=== PATIENT | male | born 1965 | race Caucasian/White ===

== ENCOUNTER → 2018-08-12 09:41 | Outpatient (CLI) | payer OTHER, MEDICAID, MEDICARE, SELFPAY ==
[2018-08-12 10:30] LABS: Add Manual Diff / Slide Review NO; Basophils Absolute Auto 0 /uL (0-100); Basophils Percent Auto 0.5 % (0-2); Eosinophils Absolute Auto 200 /uL (0-450); Eosinophils Percent Auto 3.2 % (2-4); Hematocrit 41.3 % (41-53); Hemoglobin 14.3 g/dL (13.5-17.5); Lymphocytes Absolute Auto 1600 /uL (1100-4500); Lymphocytes Percent Auto 33.8 % (25-40); Mean Corpuscular HGB Conc 34.6 % (30-36); Mean Corpuscular Hemoglobin 30.3 PG (26-34); Mean Corpuscular Volume 87.6 fL (80-100); Monocytes Absolute Auto 300 /uL (0-900); Monocytes Percent Auto 7.4 % (3-14); Neutrophils Absolute Auto 2600 /uL (1500-7000); Neutrophils Percent Auto 55.1 % (50-75); Platelet Count 188 X10^3/uL (150-400); Red Blood Cell Count 4.71 X10^6/uL (4.5-5.9); Red Cell Distribution Width 12.6 % (11.6-14.8); White Blood Cell Count 4.6 X10^3/uL (4.5-11.0)
[2018-08-12 12:16] LABS: HEMOLYSIS < 15 (0-50); Iron 69 ug/dL (49-181)
[2018-08-12 12:26] LABS: Percent Iron Saturation 21 % (20-50); Total Iron Binding Capacity 332 ug/dL (261-462); Transferrin 258 mg/dL (206-381)
[2018-08-14 20:36] LABS: Levetiracetam Keppra 9.2 mcg/mL
[2018-08-15 16:05] LABS: Lamotrigine Lamictal 6.7 mcg/mL (4.0-18.0)
== END ==
PROVIDERS: Psychiatry & Neurology Neurology; PCP Family Medicine; Visit Provider Internal Medicine
DX: D64.9 Anemia, unspecified (principal); G40.009 Localization-related (focal) (partial) idiopathic epilepsy and epileptic syndromes with seizures of localized onset, not intractable, without status epilepticus
CPT/HCPCS: 36415; 80175; 80177; 83540; 83550; 85025

== ENCOUNTER → 2019-02-21 11:53 | Outpatient (CLI) | payer MEDICARE, MEDICAID, SELFPAY ==
[2019-02-21 13:21] LABS: Add Manual Diff / Slide Review NO; Basophils Absolute Auto 0 /uL (0-100); Basophils Percent Auto 0.6 % (0-2); Eosinophils Absolute Auto 200 /uL (0-450); Eosinophils Percent Auto 3.8 % (2-4); Hematocrit 41.2 % (41-53); Hemoglobin 14.1 g/dL (13.5-17.5); Lymphocytes Absolute Auto 1500 /uL (1100-4500); Lymphocytes Percent Auto 25.8 % (25-40); Mean Corpuscular HGB Conc 34.2 % (30-36); Mean Corpuscular Hemoglobin 30.3 PG (26-34); Mean Corpuscular Volume 88.7 fL (80-100); Monocytes Absolute Auto 400 /uL (0-900); Monocytes Percent Auto 6.7 % (3-14); Neutrophils Absolute Auto 3800 /uL (1500-7000); Neutrophils Percent Auto 63.1 % (50-75); Platelet Count 202 X10^3/uL (150-400); Red Blood Cell Count 4.64 X10^6/uL (4.5-5.9); Red Cell Distribution Width 12.4 % (11.6-14.8); White Blood Cell Count 5.9 X10^3/uL (4.5-11.0)
[2019-02-21 13:59] LABS: Free T4, Direct Thyroxine 1.14 ng/dL (0.78-2.19)
[2019-02-24 14:11] LABS: Triiodothyronine T3 Total 122 ng/dL (76-181)
[2019-02-25 09:03] LABS: Lamotrigine Lamictal 7.1 mcg/mL (4.0-18.0)
== END ==
PROVIDERS: PCP Internal Medicine; Visit Provider Psychiatry & Neurology Neurology
DX: R61 Generalized hyperhidrosis (principal); G40.009 Localization-related (focal) (partial) idiopathic epilepsy and epileptic syndromes with seizures of localized onset, not intractable, without status epilepticus
CPT/HCPCS: 36415; 80175; 84439; 84443; 84480; 85025

== ENCOUNTER → 2019-12-17 13:05 | Outpatient (CLI) | payer MEDICARE, MEDICAID, SELFPAY | PROVIDERS: PCP Student in an Organized Health Care Education/Training Program; Referring Provider Student in an Organized Health Care Education/Training Program; Visit Provider Student in an Organized Health Care Education/Training Program | DX: M81.0 Age-related osteoporosis without current pathological fracture (principal); Z82.62 Family history of osteoporosis; Z87.891 Personal history of nicotine dependence | CPT/HCPCS: 77080 ==

== ENCOUNTER → 2019-12-28 11:25 | Outpatient (CLI) | payer MEDICARE, MEDICAID, SELFPAY ==
[2019-12-30 08:22] LABS: COVID19 Sendout Not Detected (Not Detect)
== END ==
PROVIDERS: PCP Student in an Organized Health Care Education/Training Program; Visit Provider Physician Assistant
DX: Z11.59 Encounter for screening for other viral diseases (principal)
CPT/HCPCS: 87635

== ENCOUNTER → 2019-12-31 12:56 | Outpatient (CLI) | payer MEDICARE, MEDICAID, SELFPAY ==
--- NOTE | 2020-01-07 10:09 | PM.PFT.1 ---
Pulmonary Function Test Referral & Results Date Patient Seen: 12/31/19 Requesting provider: Kody Howell Indication: COPD Results: The spirometry demonstrates an FVC of 4.05 L which is 86% of predicted. The FEV1 was measured at 2.10 L which is 58% of predicted. The FEV1/FVC ratio was 52 which is 67% of predicted. Following the administration of bronchodilator there was a 20% improvement in FEV1 and a 73% improvement in FEF 25-75%. Lung volumes show an SVC of 3.39 L which is 73% of predicted. The diffusing capacity was measured at 25.99 which is 85% of predicted. The maximum voluntary ventilation was slightly reduced Interpretation: This study demonstrates moderate obstructive lung disease based on reduction in FEV1 and FEV1/FVC ratio. There is evidence of significant benefit following bronchodilator as above There is also mild restrictive lung disease present based on reduction SVC There is a minimal reduction in diffusing capacity suggesting element of disease at the capillary alveolar level as well. Clinical correlation suggested
== END ==
PROVIDERS: PCP Student in an Organized Health Care Education/Training Program; Referring Provider Student in an Organized Health Care Education/Training Program; Visit Provider Student in an Organized Health Care Education/Training Program
DX: J44.9 Chronic obstructive pulmonary disease, unspecified (principal); Z87.891 Personal history of nicotine dependence
CPT/HCPCS: 94060; 94726; 94729

== ENCOUNTER → 2020-01-01 13:56 | Outpatient (CLI) | payer MEDICARE, MEDICAID, SELFPAY ==
[2020-01-01 14:44] LABS: Hematocrit 40.9 % (41-53); Hemoglobin 13.9 g/dL (13.5-17.5); Mean Corpuscular Hemoglobin 29.5 PG (26-34); Platelet Count 195 X10^3/uL (150-400)
[2020-01-01 14:54] LABS: Alanine Aminotransferase 20 IU/L (<50); Albumin 4.7 g/dL (3.5-5.0); Albumin Globulin Ratio 1.6 (1.0-2.8); Alkaline Phosphatase 85 U/L (38-126); Aspartate Aminotransferase 29 IU/L (17-59); BUN Creatinine Ratio 17.1 (6-22); Bilirubin Total 0.7 mg/dL (0.2-1.3); Blood Urea Nitrogen 18 mg/dL (9-20); Calcium 9.8 mg/dL (8.4-10.2); Carbon Dioxide 29 mmol/L (22-32); Chloride 102 mmol/L (98-107); Estimated Glomerular Filt Rate > 60.0 mL/min (>60); Globulin 2.9 g/dL (1.7-4.1); Glucose 102 mg/dL (70-100); HEMOLYSIS < 15 (0-50); Potassium 4.6 mmol/L (3.4-5.1); Sodium 137 mmol/L (137-145); Total Protein 7.6 g/dL (6.3-8.2)
[2020-01-01 15:13] LABS: HEMOLYSIS < 15 (0-50); Iron 115 ug/dL (49-181)
[2020-01-01 15:23] LABS: Percent Iron Saturation 32 % (20-50); Total Iron Binding Capacity 356 ug/dL (261-462); Transferrin 277 mg/dL (206-381)
[2020-01-01 15:39] LABS: Vitamin B12 723 pg/mL (239-931)
[2020-01-01 15:44] LABS: TSH w/ Reflex to FT4 1.61 uIU/mL (0.47-4.68)
== END ==
PROVIDERS: PCP Student in an Organized Health Care Education/Training Program; Referring Provider Student in an Organized Health Care Education/Training Program; Visit Provider Student in an Organized Health Care Education/Training Program
DX: G25.81 Restless legs syndrome (principal); R53.83 Other fatigue; M81.0 Age-related osteoporosis without current pathological fracture; R23.2 Flushing
CPT/HCPCS: 36415; 80053; 82607; 83540; 83550; 84443; 85027

== ENCOUNTER → 2020-01-21 13:55 | Outpatient (CLI) | payer MEDICARE, MEDICAID, SELFPAY ==
[2020-01-21 15:00] LABS: Cholesterol 186 mg/dL (140-199); HDL Cholesterol 45 mg/dL (40-60); LDL Cholesterol Calculated 99 mg/dL (<100); Triglycerides 211 mg/dL (35-150)
[2020-01-21 22:09] LABS: Vitamin D 25 Hydroxy (D3) 77.5 ng/mL (30.0-100.0)
== END ==
PROVIDERS: PCP Student in an Organized Health Care Education/Training Program; Referring Provider Student in an Organized Health Care Education/Training Program; Visit Provider Student in an Organized Health Care Education/Training Program
DX: E55.9 Vitamin D deficiency, unspecified (principal); M81.0 Age-related osteoporosis without current pathological fracture; Z13.220 Encounter for screening for lipoid disorders
CPT/HCPCS: 36415; 80061; 82306

== ENCOUNTER → 2021-01-23 08:01 | Outpatient (CLI) | payer MEDICARE, MEDICAID, SELFPAY ==
[2021-01-23 09:53] LABS: Add Manual Diff / Slide Review NO; Basophils Absolute Auto 0 /uL (0-100); Basophils Percent Auto 0.7 % (0-2); Eosinophils Absolute Auto 100 /uL (0-450); Eosinophils Percent Auto 3.1 % (2-4); Hematocrit 38.9 % (41-53); Hemoglobin 13.4 g/dL (13.5-17.5); Lymphocytes Absolute Auto 1600 /uL (1100-4500); Lymphocytes Percent Auto 32.9 % (25-40); Mean Corpuscular HGB Conc 34.4 % (30-36); Mean Corpuscular Hemoglobin 29.9 PG (26-34); Monocytes Absolute Auto 400 /uL (0-900); Monocytes Percent Auto 9.2 % (3-14); Neutrophils Absolute Auto 2600 /uL (1500-7000); Neutrophils Percent Auto 54.1 % (50-75); Platelet Count 174 X10^3/uL (150-400); Red Blood Cell Count 4.47 X10^6/uL (4.5-5.9); Red Cell Distribution Width 12.7 % (11.6-14.8); White Blood Cell Count 4.7 X10^3/uL (4.5-11.0)
[2021-01-23 10:49] LABS: Albumin 4.5 g/dL (3.5-5.0); BUN Creatinine Ratio 15.4 (6-22); Blood Urea Nitrogen 18 mg/dL (9-20); Calcium 9.6 mg/dL (8.4-10.2); Carbon Dioxide 26 mmol/L (22-32); Chloride 102 mmol/L (98-107); Estimated Glomerular Filt Rate > 60.0 mL/min (>60); Glucose 103 mg/dL (70-100); HEMOLYSIS < 15 (0-50); Phosphorous 4.6 mg/dL (2.5-4.5); Potassium 4.4 mmol/L (3.4-5.1); Sodium 136 mmol/L (137-145)
[2021-01-23 10:52] LABS: Vitamin D 25 Hydroxy (D3) 82.1 ng/mL (30.0-100.0)
[2021-01-23 10:53] LABS: Follicle Stimulating Hormone 3.14 mIU/mL; Luteinizing Hormone 0.792 mIU/mL
[2021-01-23 10:58] LABS: Free T4, Direct Thyroxine 1.16 ng/dL (0.78-2.19)
[2021-01-23 11:12] LABS: Thyroid Stimulating Hormone 2.74 uIU/mL (0.47-4.68)
[2021-01-23 11:22] LABS: Prostate Specific Antigen 1.46 ng/mL (0.10-4.00)
[2021-01-24 02:34] LABS: Sex Hormone Binding Globulin 60.4 nmol/L (19.3-76.4)
[2021-01-28 15:11] LABS: Percent Free Testosterone 2.44 % (1.50-4.20); Testosterone Free 5.24 ng/dL (5.00-21.00); Testosterone Total 214.7 ng/dL (264.0-916.0)
== END ==
PROVIDERS: PCP Student in an Organized Health Care Education/Training Program; Referring Provider Student in an Organized Health Care Education/Training Program; Visit Provider Student in an Organized Health Care Education/Training Program
DX: M81.0 Age-related osteoporosis without current pathological fracture (principal)
CPT/HCPCS: 36415; 80069; 82306; 83001; 83002; 84146; 84153; 84270; 84402; 84403; 84439; 84443; 85025

== ENCOUNTER → 2021-03-15 07:57 | Outpatient (CLI) | payer MEDICARE, MEDICAID, SELFPAY ==
[2021-03-15 09:04] LABS: Add Manual Diff / Slide Review NO; Basophils Absolute Auto 0 /uL (0-100); Basophils Percent Auto 0.6 % (0-2); Eosinophils Absolute Auto 100 /uL (0-450); Eosinophils Percent Auto 3.5 % (2-4); Hematocrit 38.4 % (41-53); Hemoglobin 13.5 g/dL (13.5-17.5); Lymphocytes Absolute Auto 1300 /uL (1100-4500); Lymphocytes Percent Auto 29.4 % (25-40); Mean Corpuscular Hemoglobin 30.6 PG (26-34); Mean Corpuscular Volume 87.4 fL (80-100); Monocytes Absolute Auto 400 /uL (0-900); Monocytes Percent Auto 9.6 % (3-14); Neutrophils Absolute Auto 2400 /uL (1500-7000); Neutrophils Percent Auto 56.9 % (50-75); Platelet Count 170 X10^3/uL (150-400); Red Cell Distribution Width 12.9 % (11.6-14.8); White Blood Cell Count 4.3 X10^3/uL (4.5-11.0)
[2021-03-15 09:39] LABS: HEMOLYSIS < 15 (0-50); Iron 102 ug/dL (49-181)
[2021-03-15 09:41] LABS: Alanine Aminotransferase 21 IU/L (<50); Albumin 4.4 g/dL (3.5-5.0); Albumin Globulin Ratio 1.7 (1.0-2.8); Alkaline Phosphatase 81 U/L (38-126); Aspartate Aminotransferase 30 IU/L (17-59); Bilirubin Total 0.6 mg/dL (0.2-1.3); Bilirubin Unconjugated 0.4 mg/dL (0.0-1.1); Globulin 2.6 g/dL (1.7-4.1); HEMOLYSIS < 15 (0-50)
[2021-03-15 09:51] LABS: Percent Iron Saturation 31 % (20-50); Total Iron Binding Capacity 325 ug/dL (261-462); Transferrin 233 mg/dL (206-381)
[2021-03-15 09:57] LABS: Free T4, Direct Thyroxine 1.26 ng/dL (0.78-2.19)
[2021-03-15 09:59] LABS: Follicle Stimulating Hormone 2.53 mIU/mL; Luteinizing Hormone < 0.216 mIU/mL
[2021-03-15 10:11] LABS: Thyroid Stimulating Hormone 4.31 uIU/mL (0.47-4.68)
[2021-03-15 10:12] LABS: Prostate Specific Antigen 2.05 ng/mL (0.10-4.00)
[2021-03-16 12:06] LABS: Sex Hormone Binding Globulin 51.3 nmol/L (19.3-76.4)
[2021-03-21 11:14] LABS: Testosterone Free 0.48 ng/dL (5.00-21.00); Testosterone Total 21.8 ng/dL (264.0-916.0)
== END ==
PROVIDERS: PCP Student in an Organized Health Care Education/Training Program; Referring Provider Student in an Organized Health Care Education/Training Program; Visit Provider Student in an Organized Health Care Education/Training Program
DX: E29.1 Testicular hypofunction (principal)
CPT/HCPCS: 36415; 80076; 83001; 83002; 83540; 83550; 84153; 84270; 84402; 84403; 84439; 84443; 85025

== ENCOUNTER 2022-04-27 15:16 | Emergency (ER) | payer MEDICARE, MEDICAID, SELFPAY ==
[2022-04-27 15:45] VITALS: BP 144/80; PULSE 94; RESP 16; TEMP 36.4; O2SAT 95; BMI 27.3
--- NOTE | 2022-04-27 15:48 | DI.RAD.S_ITS ---
PROCEDURE: XR WRIST RT MIN 3V INDICATIONS: Fall on out stretched hand TECHNIQUE: 4 views of the wrist were acquired. COMPARISON: None. FINDINGS: Bones: No fractures or dislocations. No suspicious bony lesions. Degenerative changes are seen throughout, which are most prominent involving the 1st carpometacarpal joint. Milder degenerative changes are seen elsewhere. Scaphoid view: No navicular fractures are seen. Soft tissues: No suspicious soft tissue calcifications. IMPRESSION: No displaced fractures are seen. If there is snuffbox tenderness (or other clinical suspicion for a fracture not seen on these images) then a repeat examination would be recommended in 10 to 14 days, following splinting. Dictated by: Rober Mosqueda M.D. on 04/27/2022 at 16:46 Approved by: Rober Mosqueda M.D. on 04/27/2022 at 16:46
--- NOTE | 2022-04-27 15:49 | DI.RAD.S_ITS ---
PROCEDURE: XR KNEE LT 3V INDICATIONS: Fall onto knee TECHNIQUE: 3 views of the knee were acquired. COMPARISON: None. FINDINGS: Bones: No fractures or dislocations. No suspicious bony lesions. Along the superior aspect of the patella, there is an enthesophyte seen. On the sunrise view, there is mild patellofemoral joint space narrowing seen. Osteophyte formation can be seen along the margins of the patella. Soft tissues: No significant joint effusion. No suspicious soft tissue calcifications. IMPRESSION: No acute plain film abnormality can be seen. If it would be helpful for clinical management decision making, please consider a dedicated, scheduled knee MRI for further evaluation (assuming that there is no contraindication). Dictated by: Rober Mosqueda M.D. on 04/27/2022 at 16:47 Approved by: Rober Mosqueda M.D. on 04/27/2022 at 16:48
--- NOTE | 2022-04-27 18:59 | ED_ITS ---
HPI - Extremity Injury (Upper) <Emma Harmon, [facility] - Last Filed: 04/27/22 19:08> General Chief Complaint: Extremity Injury, Upper Stated Complaint: R wrist pain after fall, left knee pain Time Seen by Provider: 04/27/22 18:54 Source: patient Mode of arrival: Ambulatory History of Present Illness HPI narrative: This is a 57-year-old male who presents to the emergency department complaining of right wrist pain and left knee pain after he states that he got tangled in the chair trying to get up and fell forward onto his right knee and caught himself with his left hand now with left wrist pain. He has an abrasion to his left knee, states he has an abrasion to the anterior of his right lower extremity as well, no major bleeding or symptoms. Patient has a past medical history of COPD, osteoporosis, he is on Suboxone for chronic pain. He denies numbness or tingling or weakness, denies any sensation deficit. He states he is up-to-date on vaccinations Related Data Home Medications Medication Instructions Recorded Confirmed albuterol 90 mcg/actuation aerosol mcg inhalation 11/06/19 02/05/22 inhaler buprenorphine 8 mg-naloxone 2 mg 1 film sublingual TID 11/06/19 02/05/22 sublingual film (Suboxone) lamotrigine 200 mg tablet 200 mg PO BID 11/06/19 02/05/22 (Lamictal) levetiracetam 500 mg tablet 500 mg PO BID 11/06/19 02/05/22 lorazepam 1 mg tablet 1 mg PO TID PRN 01/01/20 02/05/22 sertraline 25 mg tablet 100 mg PO DAILY 06/06/20 02/05/22 Previous Rx's Medication Instructions Recorded bupropion HCl 300 mg 24 hr tablet, 300 mg PO QAM #30 tabs 09/13/21 extended release mometasone 0.1 % topical cream 1 applic topical DAILY PRN skin 12/25/21 irritation #45 grams fluticasone 100 mcg-salmeterol 50 1 inh inhalation BID #180 ea 02/05/22 mcg/dose blistr powdr for inhalation (Advair Diskus) ipratropium bromide 17 2 puff inhalation QID #38.7 grams 02/05/22 mcg/actuation HFA aerosol inhaler (Atrovent HFA) Allergies Allergy/AdvReac Type Severity Reaction Status Date / Time bacitracin Allergy Severe RASH Verified 04/27/22 15:44 [From NEOSPORIN ([id number])] neomycin Allergy Severe RASH Verified 04/27/22 15:44 [From NEOSPORIN ([id number])] polymyxin B Allergy Severe RASH Verified 04/27/22 15:44 [From NEOSPORIN ([id number])] Review of Systems <NIKO Flores - Last Filed: 04/27/22 19:08> Review of Systems ROS Unobtainable: All systems reviewed & are unremarkable except as noted in HPI and below Patient History <NIKO Flores - Last Filed: 04/27/22 19:08> Medical History (Updated 04/27/22 @ 19:08 by NIKO Flores) Eczema Major depression Social History Smoking Status: Current every day smoker Smoking Status: Current every day smoker Substance Use Type: marijuana Exam <NIKO Flores - Last Filed: 04/27/22 19:08> Narrative Exam Narrative: Reviewed vitals signs and nursing notes. General: cooperative, comfortable, in no acute distress, well groomed HEENT: symmetrical facial expressions, moist mucous membranes MSK: moves all extremities, right wrist with mild edema, radial pulses 2+, ulnar pulses palpable, brisk cap refill to all fingers, no bony tenderness with axial load from distal fist, no elbow tenderness to palpation, full range of motion above and below wrist to all joints. He is Neurovascularly intact, no weakness, normal tone no sensation deficit Skin: brisk capillary refill, without pallor or erythema Neuro: normal speech and cognition, A&O x3, ambulatory, clear speech Psych: mental status is grossly normal, congruent mood, normal affect, pleasant and cooperative Initial Vital Signs Initial Vital Signs: Vital Signs Temperature 97.6 F 04/27/22 15:45 Pulse Rate 94 H 04/27/22 15:45 Respiratory Rate 16 04/27/22 15:45 Blood Pressure 144/80 H 04/27/22 15:45 Pulse Oximetry 95 04/27/22 15:45 Oxygen Delivery Method 04/27/22 15:45 <Tereza Woods DO - Last Filed: 04/30/22 09:40> Initial Vital Signs Initial Vital Signs: Vital Signs Temperature 97.6 F 04/27/22 15:45 Pulse Rate 94 H 04/27/22 15:45 Respiratory Rate 16 04/27/22 15:45 Blood Pressure 144/80 H 04/27/22 15:45 Pulse Oximetry 95 04/27/22 15:45 Oxygen Delivery Method 04/27/22 15:45 Course <JOCELYNN FloresP - Last Filed: 04/27/22 19:08> Orders Ordered: Discontinued Medications Hydrocodone Bitart/Acetaminophen (Hydrocodone/Acet 5/325 Tablet) 2 tab PO NOW ONE Stop: 04/27/22 18:59 Last Admin: 04/27/22 19:34 Dose: 2 tab Documented By: KAYLA Ketorolac Tromethamine (Ketorolac 30 Mg/Ml Vial) 30 mg IM NOW ONE Stop: 04/27/22 18:59 Ketorolac Tromethamine (Ketorolac 10 Mg Tablet) 10 mg PO NOW ONE Stop: 04/27/22 18:59 Last Admin: 04/27/22 19:34 Dose: 10 mg Documented By: KAYLA Vital Signs Vital signs: Vital Signs - 8 hr 04/27/22 15:45 Temperature 97.6 F Pulse Rate 94 H Respiratory Rate 16 Blood Pressure 144/80 H Pulse Oximetry 95 Oxygen Delivery Method Room Air <Tereza Woods DO - Last Filed: 04/30/22 09:40> Orders Ordered: Discontinued Medications Hydrocodone Bitart/Acetaminophen (Hydrocodone/Acet 5/325 Tablet) 2 tab PO NOW ONE Stop: 04/27/22 18:59 Last Admin: 04/27/22 19:34 Dose: 2 tab Documented By: KAYLA Ketorolac Tromethamine (Ketorolac 30 Mg/Ml Vial) 30 mg IM NOW ONE Stop: 04/27/22 18:59 Ketorolac Tromethamine (Ketorolac 10 Mg Tablet) 10 mg PO NOW ONE Stop: 04/27/22 18:59 Last Admin: 04/27/22 19:34 Dose: 10 mg Documented By: KAYLA Vital Signs Vital signs: Vital Signs - 8 hr 04/27/22 15:45 Temperature 97.6 F Pulse Rate 94 H Respiratory Rate 16 Blood Pressure 144/80 H Pulse Oximetry 95 Oxygen Delivery Method Room Air MDM - Extremity Injury (Upper) <Emma Harmon, [facility] - Last Filed: 04/27/22 19:08> Imaging Data Extremity x-ray #1: Radiologist's Impression: PROCEDURE:? XR WRIST RT MIN 3V ? INDICATIONS: Fall on out stretched hand ? TECHNIQUE:? 4 views of the wrist were acquired.? ? COMPARISON:? None. ? FINDINGS:? ? Bones:? No fractures or dislocations.? No suspicious bony lesions.? Degenerative changes are seen throughout, which are most prominent involving the 1st carpometacarpal joint.? Milder degenerative changes are seen elsewhere.? ? Scaphoid view:? No navicular fractures are seen. ? Soft tissues:? No suspicious soft tissue calcifications.? ? IMPRESSION:? ? No displaced fractures are seen.? ? If there is snuffbox tenderness (or other clinical suspicion for a fracture not seen on these images) then a repeat examination would be recommended in 10 to 14 days, following splinting. ? ? ? Dictated by: Rober Mosqueda M.D. on 04/27/2022 at 16:46 ? ? Approved by: Rober Mosqueda M.D. on 04/27/2022 at 16:46 ? Extremity x-ray #2: Radiologist's Impression: PROCEDURE:? XR KNEE LT 3V ? INDICATIONS:? Fall onto knee ? TECHNIQUE:? 3 views of the knee were acquired.? ? COMPARISON:? None. ? FINDINGS:? ? Bones:? No fractures or dislocations.? No suspicious bony lesions.? Along the superior aspect of the patella, there is an enthesophyte seen. On the sunrise view, there is mild patellofemoral joint space narrowing seen. Osteophyte formation can be seen along the margins of the patella. ? Soft tissues:? No significant joint effusion.? No suspicious soft tissue calcifications.? IMPRESSION:? No acute plain film abnormality can be seen. ? If it would be helpful for clinical management decision making, please consider a dedicated, scheduled knee MRI for further evaluation (assuming that there is no contraindication).? ? ? Dictated by: Rober Mosqueda M.D. on 04/27/2022 at 16:47 ? ? Approved by: Rober Mosqueda M.D. on 04/27/2022 at 16:48 ? [facility] Narrative Medical decision making narrative: Chief Complaint: Fall with right wrist and left knee pain This is a 57-year-old male who presents to the emergency department complaining of right wrist pain and left knee pain after he states that he got tangled in the chair trying to get up and fell forward onto his right knee and caught himself with his left hand now with left wrist pain. Differential diagnoses include but are not limited to: Wrist fracture, left patellar fracture, wrist sprain, left knee sprain, abrasion, osteoarthritis, scaphoid fracture, elbow injury I have reviewed the patient's vital signs and nursing notes as well as prior records if available. Independently reviewed imaging including: Left knee x-ray is negative for fracture, without significant joint effusion, mild patellofemoral joint space narrowing with osteophyte formation along the margins of the patella. Left wrist does not show displaced fracture, navicular fracture, or suspicious bony lesions, does show degenerative changes throughout most prominently over the 1st carpometacarpal joint Patient was fitted in a right wrist Velcro splint, offered Giovanni bandage for his left knee but does not want 1. He was treated with p.o. Toradol and hydrocodone emergency department, encouraged to use his other pain medications as an outpatient and include Tylenol and ibuprofen, ice, rest and immobilize until it starts feeling better. He will follow up with [facility] if he does not have improvement of his symptoms over the next 1-2 weeks. Patient's symptoms improved over duration of stay with above-stated therapies. Social considerations that may affect disposition: None Questions are addressed and there is agreement with the plan and for follow-up. Patient is appropriate for outpatient management. MIPS: This encounter doesn't have any diagnosis' associated with MIPS criteria. Discharge Plan Departure Patient Disposition: Home Clinical Impression: Fall Qualifiers: Encounter type: initial encounter Qualified Code(s): W19.XXXA - Unspecified fal l, initial encounter Sprain of left wrist Qualifiers: Encounter type: initial encounter Qualified Code(s): S63.502A - Unspecified sprain of left wrist, initial encounter Injury of knee Qualifiers: Encounter type: initial encounter Laterality: right Qualified Code(s): S89.91XA - Unspecified injury of right lower leg, initial encounter Activity Restrictions/Additional Instructions: *You have been diagnosed with a right wrist sprain, this will take 1-2 weeks to start feeling better, use immobilization, ice, Tylenol ibuprofen in conjunction with your other medications to help you feel better. Follow up with [facility] if this gets worse, try to avoid worsening this by using it a lot. Your left knee could benefit from an Giovanni bandage if it feels unstable however there is no significant fluid in the joint and no fractures on either x-ray. I hope you feel better soon, thank you for coming in for your patience today. *What to do: *Please continue to take your regular medications as directed. [ ] New medication prescriptions sent to your pharmacy: [ ] [ ] New medication written as a paper prescription [x ] No new medications given *Please follow up with your primary care provider in 2-3 days, call for an appointment. Let them know you were seen in the Emergency Department and that we asked that you be seen for follow-up. We will electronically transmit a record of today's note if your PCP is in our system *If you do not have a primary care provider please contact [phone] to establish care with one of [facility] primary care providers. *Return to Emergency Department if you should have any new, worsening, or concerning symptoms, such as [fever greater than 101F, chills, worsening pain, persistent vomiting or other bothersome symptoms]. Prescriptions: No Action bupropion HCl 300 mg tablet extended release 24 hr 300 mg PO QAM Qty: 30 0RF Rx Instructions: APPT DUE NOW WITH PCP. PLEASE CALL TO SCHEDULE APPT BEFORE END OF RX/FUTURE FILLS. THANK YOU 07/13/21 09/13/21 mometasone 0.1 % cream 1 applic topical DAILY PRN (Reason: skin irritation) Qty: 45 0RF lamotrigine [Lamictal] 200 mg tablet 200 mg PO BID albuterol 90 mcg/actuation aerosol INHALATION levetiracetam 500 mg tablet 500 mg PO BID buprenorphine-naloxone [Suboxone] 8-2 mg film 1 film SL TID sertraline 25 mg tablet 100 mg PO DAILY lorazepam 1 mg tablet 1 mg PO TID PRN fluticasone propion-salmeterol [Advair Diskus] 100-50 mcg/dose blister with device 1 inh INHALATION BID Qty: 180 3RF Atrovent HFA 17 mcg/actuation HFA aerosol inhaler 2 puff INHALATION QID Qty: 38.7 3RF Referrals: [facility] [Provider Group] Kody Howell MD [Primary Care Provider] - Stand Alone Forms: Patient Portal/API <Tereza Woods DO - Last Filed: 04/30/22 09:40> Cosign ED Attending Cosignature Attestation: I was immediately available in the department for consultation. Documentation has been reviewed.
[2022-04-27] MEDS: KETOROLAC 10 MG TABLET PO (19:34)
[2022-04-27] MEDS: HYDROCODONE/ACET 5/325 TABLET 2 TAB PO (19:34)
[2022-04-27 19:52] VITALS: BP 135/76; PULSE 74; O2SAT 98
== END 2022-04-27 19:53 | disposition home or self-care (01) ==
PROVIDERS: Emergency Provider Nurse Practitioner Critical Care Medicine; PCP Student in an Organized Health Care Education/Training Program
DX: S63.502A Unspecified sprain of left wrist, initial encounter (principal); S89.91XA Unspecified injury of right lower leg, initial encounter; M25.561 Pain in right knee; W18.30XA Fall on same level, unspecified, initial encounter
CPT/HCPCS: 73110; 73562; 99283

== ENCOUNTER → 2023-02-13 15:19 | Outpatient (CLI) | payer MEDICARE, MEDICAID, SELFPAY ==
--- NOTE | 2023-02-13 15:20 | DI.CT.S_ITS ---
PROCEDURE: CT LUNG LOW DOSE SCREENING INDICATIONS: lung screening TECHNIQUE: Noncontrast 2.0-2.5 mm thick sections acquired from the pulmonary apices to the posterior costophrenic angles. 7 mm thick axial MIP, and 5 mm coronal and sagittal reformats were then acquired. A low radiation dose technique was utilized. COMPARISON: None. FINDINGS: Image quality: Diagnostic, given the low radiation dose technique. Lungs and pleura: No suspicious pulmonary nodule is seen. No focal infiltrate, pleural effusion or pneumothorax. Central and peripheral airway is patent. Mediastinum: Heart size is normal. No pericardial effusion. No mediastinal adenopathy by size criteria. Thoracic aorta and central pulmonary arteries are normal in size. Esophagus is normal in caliber. No hiatal hernia. Bones and chest wall: No suspicious bony lesions. No vertebral body compression fractures. No axillary or supraclavicular adenopathy by size criteria. Thyroid gland is within normal limits. Abdomen: Visualized upper abdomen solid organs and bowel loops appear normal in the absence of contrast. IMPRESSION: 1. No suspicious pulmonary nodule is seen. LUNG-RADS 1, annual low-dose screening CT chest follow-up is recommended as long as patient meets the criteria. 2. No mediastinal or hilar lymphadenopathy. No significant atherosclerotic disease. Dictated by: Raimundo Woodard M.D. on 02/13/2023 at 16:32 Approved by: Raimundo Woodard M.D. on 02/13/2023 at 16:35
== END ==
PROVIDERS: PCP Family Medicine; Referring Provider Family Medicine; Visit Provider Family Medicine
DX: Z12.2 Encounter for screening for malignant neoplasm of respiratory organs; F17.210 Nicotine dependence, cigarettes, uncomplicated
CPT/HCPCS: 71271

== ENCOUNTER → 2023-03-13 16:58 | Outpatient (CLI) | payer MEDICARE, MEDICAID, SELFPAY ==
[2023-03-13 18:16] LABS: Prostate Specific Antigen 5.65 ng/mL (0.10-4.00)
== END ==
PROVIDERS: PCP Family Medicine; Referring Provider Urology; Visit Provider Urology
DX: R97.20 Elevated prostate specific antigen [PSA] (principal)
CPT/HCPCS: 36415; 84153

== ENCOUNTER 2023-05-21 12:52 | Day surgery (SDC) | payer MEDICARE, MEDICAID, SELFPAY ==
[2023-05-21] MEDS: LACTATED RINGERS 1,000 ML 42 ML IV (13:04)
[2023-05-21 13:13] VITALS: BP 141/88; PULSE 105; RESP 19; TEMP 36.1; O2SAT 94
[2023-05-21] MEDS: ALBUTEROL 2.5 MG/3 ML NEB (ADULT) INH (13:34)
--- NOTE | 2023-05-21 13:37 | PM.HP.1 ---
History of Present Illness History of Present Illness Date Patient Seen: 05/21/23 Time Patient Seen: 13:37 Chief complaint: Screening Colonoscopy Narrative: 58-year-old man here for screening colonoscopy. Last colonoscopy greater than 10 years ago normal. No family history of intestinal malignancy. No abdominal concerns today. [facility] Medical History Atypical pigmented skin lesion Pustules determined by examination Preventative health care Substance use disorder Depression Epilepsy Hordeolum externum Eczema Major depression Social History Smoking Status: Current every day smoker alcohol intake: never Meds Home Medications and Allergies Home Medications Medication Instructions Recorded Confirmed Type albuterol 90 mcg/actuation aerosol 1 mcg inhalation PRN PRN wheeze 11/06/19 04/05/23 History inhaler lamotrigine 200 mg tablet 200 mg PO BID 11/06/19 05/21/23 History (Lamictal) levetiracetam 500 mg tablet 500 mg PO BID 11/06/19 05/21/23 History lorazepam 1 mg tablet 1 mg PO TID PRN Anxiety 01/01/20 05/21/23 History sertraline 25 mg tablet 100 mg PO DAILY 06/06/20 05/21/23 History bupropion HCl 300 mg 24 hr tablet, 300 mg PO QAM #30 tabs 09/13/21 05/21/23 Rx extended release ipratropium bromide 17 2 puff inhalation QID #38.7 grams 02/05/22 05/21/23 Rx mcg/actuation HFA aerosol inhaler (Atrovent HFA) ipratropium bromide 17 2 inh inhalation TID PRN shortness 03/19/23 05/21/23 Rx mcg/actuation HFA aerosol inhaler of breath or wheezing #12.9 grams (Atrovent HFA) tiotropium bromide 18 mcg capsule 1 cap inhalation DAILY #30 04/05/23 05/21/23 Rx with inhalation device (Spiriva inhalations with HandiHaler) buprenorphine 8 mg-naloxone 2 mg 1 film sublingual TID #90 ea 05/09/23 05/21/23 Rx sublingual film (Suboxone) Allergies Allergy/AdvReac Type Severity Reaction Status Date / Time bacitracin Allergy Severe RASH Verified 05/21/23 13:08 [From NEOSPORIN ([id number])] neomycin Allergy Severe RASH Verified 05/21/23 13:08 [From NEOSPORIN ([id number])] polymyxin B Allergy Severe RASH Verified 05/21/23 13:08 [From NEOSPORIN ([id number])] Exam Vital Signs (past 8 hours): - 05/21/23 13:13 Temperature 96.9 F L Pulse Rate 105 H Respiratory Rate 19 Blood Pressure 141/88 H Pulse Oximetry 94 Oxygen Delivery Method Room Air Oxygen Delivery Method Room Air Narrative Exam Narrative: General adult man alert oriented no acute distress Chest nonlabored respiration Extremities warm well perfused Assessment & Plan Assessment & Plan narrative: The patient requires colorectal screening and colonoscopy is recommended. Technical details were discussed. Risks, benefits, alternatives explained. Risks including but not limited to myocardial infarction, aspiration, bleeding, pain, missed lesion, incomplete examination, need for further radiographic studies, colonic perforation, and need for major abdominal surgery were discussed. All questions were answered to their satisfaction, and they are in agreement with this plan.
[2023-05-21 14:05] VITALS: BP 99/56; PULSE 80; RESP 14; TEMP 36.8; O2SAT 93
--- NOTE | 2023-05-21 14:09 | P.OP.COLON_ITS ---
Operative Date/Time/Diagnoses Date of procedure: 05/21/23 Time of procedure: 14:10 Pre-op diagnosis: Colorectal screening Procedure & Clinicians Study performed: Screening colonoscopy Same procedure as scheduled: Yes Indications: Colorectal screening Surgeon: Noé March Procedure Notes Procedure in detail: The history and physical was performed/updated and the patient is ASA class is 3. The procedure was discussed in detail with the patient. Potential risks co mplications including infection, bleeding, missed diagnosis, perforation, need for surgery, and were explained. Their questions were answered and informed consent was obtained. Patient was brought to the procedure room and placed standard monitoring equipment. The patient's vital signs were monitored continuously throughout the entire procedure. Prior to starting time-out was performed. The patient was placed in the left lateral recumbent position. Procedural sedation was administered by anesthesia. Examination began with a thorough inspection of the perianal area there was no evidence of fissures, fistulae, external hemorrhoids or cutaneous malignancy. The colonoscopy scope was then placed into the anal canal and was advanced to the cecum, which was identified by the ileocecal valve, the appendiceal orifice and the confluence of the taenia. The scope was then slowly withdrawn examining colon thoroughly in all directions, irrigating it of any residual stool. The scope was retroflexed within the rectum The patient tolerated the procedure well. They will be discharged once criteria are met. The prep was of good/excellent quality. The withdrawl time was 6 minutes. FINDINGS * Normal colonoscopy. Normal healthy colonic mucosa without masses, polyps, inflammation. Specimen(s): none sent Impression: Normal colonoscopy Post-procedure Recommendations: Colonoscopy in 10 years Disposition: same day surgery
[2023-05-21 14:10] VITALS: BP 109/67; PULSE 88; RESP 12; O2SAT 96
[2023-05-21 14:15] VITALS: BP 118/75; PULSE 86; RESP 15; O2SAT 94
[2023-05-21 14:22] VITALS: BP 123/75; PULSE 78; RESP 16; TEMP 36.7; O2SAT 98
[2023-05-21 14:30] VITALS: BP 112/74; PULSE 75; RESP 14; TEMP 36.6; O2SAT 98
== END 2023-05-21 14:42 | disposition home or self-care (01) ==
PROVIDERS: PCP Family Medicine; Referring Provider Surgery; Visit Provider Surgery
PROC: 0DJD8ZZ Inspection of Lower Intestinal Tract, Via Natural or Artificial Opening Endoscopic (ICD-10-PCS; CPT 45378; principal; 2023-05-21 13:30)
DX: Z12.11 Encounter for screening for malignant neoplasm of colon (principal)
CPT/HCPCS: G0121; J2704; J7613

== ENCOUNTER → 2023-07-08 14:56 | Outpatient (CLI) | payer MEDICARE, MEDICAID, SELFPAY ==
--- NOTE | 2023-07-08 14:57 | DI.CT.S_ITS ---
PROCEDURE: CT LUNG LOW DOSE SCREENING INDICATIONS: routine screening TECHNIQUE: Noncontrast 2.0-2.5 mm thick sections acquired from the pulmonary apices to the posterior costophrenic angles. 7 mm thick axial MIP, and 5 mm coronal and sagittal reformats were then acquired. For radiation dose reduction, the following was used: automated exposure control, adjustment of mA and/or kV according to patient size. COMPARISON: [facility], CT, CT LUNG LOW DOSE SCREENING, 02/13/2023, 15:25. FINDINGS: Image quality: Diagnostic. Lower Neck: No enlarged lymph nodes. Thyroid: No thyroid nodules which require sonographic follow up, per consensus guidelines. Axillae: No enlarged lymph nodes. Chest Wall: Unremarkable. Bones: Mild old T7 compression. No lytic or blastic bony lesions. No acute compression fractures. Lungs and Pleura: No pneumothorax or pleural effusions. 3 mm pulmonary nodule, right lung, image 200/3. It is unchanged from the previous study, previous image 205/3. 2 mm pulmonary nodule, left upper lobe, image 114/3. It is unchanged from previous image 110/3. Heart: Heart size is normal. No pericardial effusion. Thoracic Vessels: The aorta and pulmonary arteries demonstrate normal size. Mediastinum and Steffi: No enlarged lymph nodes. Esophagus: No wall thickening. No hiatal hernia. Upper Abdomen: Visualized upper abdomen solid organs and bowel loops appear normal. IMPRESSION: There are 2 small pulmonary nodules, unchanged. They are of low likelihood for malignancy. LUNG-RADS 2; continued annual screening, if eligible. Clinically Significant Non-pulmonary Findings: None. Dictated by: Kendell Obregon M.D. on 07/08/2023 at 19:08 Approved by: Kendell Obregon M.D. on 07/08/2023 at 19:14
== END ==
LOC: CT 14:57
PROVIDERS: PCP Family Medicine; Referring Provider Family Medicine; Visit Provider Family Medicine
DX: F17.210 Nicotine dependence, cigarettes, uncomplicated (principal); Z12.2 Encounter for screening for malignant neoplasm of respiratory organs; R91.8 Other nonspecific abnormal finding of lung field
CPT/HCPCS: 71271

== ENCOUNTER → 2023-09-10 14:02 | Outpatient (CLI) | payer MEDICARE, MEDICAID, SELFPAY ==
--- NOTE | 2023-09-10 14:03 | DI.RAD.S_ITS ---
PROCEDURE: XR RIBS RT MIN 3V W CXR 1V INDICATIONS: right rib pain TECHNIQUE: 2 views of the ribs were acquired, along with a single view chest. COMPARISON: None. FINDINGS: Surgical changes and devices: None. Bones and chest wall: Healed fracture deformities of the right posterior T7 and T8 vertebral bodies. Acute, nondisplaced fracture of the right lateral 9th rib. No suspicious bony lesions. Overlying soft tissues appear unremarkable. Lungs and pleura: No pleural effusions or pneumothorax. Lungs appear clear. Mediastinum: Mediastinal contours appear normal. Heart size is normal. IMPRESSION: Nondisplaced fracture of the right lateral 9th rib. No pneumothorax. Dictated by: Reed Meza M.D. on 09/10/2023 at 15:15 Approved by: Reed Meza M.D. on 09/10/2023 at 15:17
[2023-09-10 15:13] LABS: Add Manual Diff / Slide Review NO; Basophils Absolute Auto 0 /uL (0-100); Basophils Percent Auto 0.6 % (0-2); Eosinophils Absolute Auto 200 /uL (0-450); Eosinophils Percent Auto 3.3 % (2-4); Hematocrit 50.2 % (41-53); Hemoglobin 17.5 g/dL (13.5-17.5); Lymphocytes Absolute Auto 1600 /uL (1100-4500); Lymphocytes Percent Auto 23.8 % (25-40); Mean Corpuscular HGB Conc 34.8 % (30-36); Mean Corpuscular Hemoglobin 31.1 PG (26-34); Mean Corpuscular Volume 89.3 fL (80-100); Monocytes Absolute Auto 500 /uL (0-900); Neutrophils Absolute Auto 4300 /uL (1500-7000); Neutrophils Percent Auto 64.3 % (50-75); Platelet Count 224 X10^3/uL (150-400); Red Blood Cell Count 5.62 X10^6/uL (4.5-5.9); Red Cell Distribution Width 12.3 % (11.6-14.8); White Blood Cell Count 6.7 X10^3/uL (4.5-11.0)
[2023-09-10 15:25] LABS: Alanine Aminotransferase 18 IU/L (<50); Albumin 4.6 g/dL (3.5-5.0); Albumin Globulin Ratio 1.9 (1.0-2.8); Alkaline Phosphatase 69 U/L (38-126); Aspartate Aminotransferase 27 IU/L (17-59); BUN Creatinine Ratio 11.6 (6-22); Bilirubin Total 0.7 mg/dL (0.2-1.3); Blood Urea Nitrogen 14 mg/dL (9-20); Calcium 9.1 mg/dL (8.4-10.2); Carbon Dioxide 27 mmol/L (22-32); Chloride 104 mmol/L (98-107); Estimated Glomerular Filt Rate > 60 mL/min (>60); Globulin 2.4 g/dL (1.7-4.1); Glucose 116 mg/dL (70-100); HEMOLYSIS 21 (0-50); Potassium 4.9 mmol/L (3.4-5.1); Sodium 139 mmol/L (137-145)
[2023-09-10 15:55] LABS: Prostate Specific Antigen Scrn 11.3 ng/mL (0.1-4.0); TSH w/ Reflex to FT4 2.01 uIU/mL (0.47-4.68)
== END ==
PROVIDERS: Pediatrics; PCP Family Medicine; Referring Provider Family Medicine; Visit Provider Family Medicine
DX: S22.31XA Fracture of one rib, right side, initial encounter for closed fracture (principal); R07.81 Pleurodynia; Z12.5 Encounter for screening for malignant neoplasm of prostate; G40.909 Epilepsy, unspecified, not intractable, without status epilepticus; F17.200 Nicotine dependence, unspecified, uncomplicated; S22.41XS Multiple fractures of ribs, right side, sequela; J44.9 Chronic obstructive pulmonary disease, unspecified
CPT/HCPCS: 36415; 71101; 80053; 84443; 85025; G0103

== ENCOUNTER → 2023-11-21 16:28 | Outpatient (CLI) | payer MEDICARE, MEDICAID, SELFPAY ==
[2023-11-21 18:02] LABS: Prostate Specific Antigen 11.1 ng/mL (0.10-4.00)
== END ==
LOC: LAB 16:30
PROVIDERS: PCP Family Medicine; Referring Provider Urology; Visit Provider Urology
DX: R97.20 Elevated prostate specific antigen [PSA] (principal)
CPT/HCPCS: 36415; 84153

== ENCOUNTER → 2024-07-13 08:04 | Outpatient (CLI) | payer MEDICARE, MEDICAID, SELFPAY ==
[2024-07-13 08:37] LABS: Add Manual Diff / Slide Review NO; Basophils Absolute Auto 0 /uL (0-100); Basophils Percent Auto 0.6 % (0-2); Eosinophils Absolute Auto 200 /uL (0-450); Eosinophils Percent Auto 3.5 % (2-4); Hematocrit 49.4 % (41-53); Lymphocytes Absolute Auto 1900 /uL (1100-4500); Lymphocytes Percent Auto 32.2 % (25-40); Mean Corpuscular HGB Conc 34.5 % (30-36); Mean Corpuscular Hemoglobin 31.5 PG (26-34); Mean Corpuscular Volume 91.3 fL (80-100); Monocytes Absolute Auto 500 /uL (0-900); Monocytes Percent Auto 8.8 % (3-14); Neutrophils Absolute Auto 3200 /uL (1500-7000); Neutrophils Percent Auto 54.9 % (50-75); Platelet Count 180 X10^3/uL (150-400); Red Blood Cell Count 5.41 X10^6/uL (4.5-5.9); Red Cell Distribution Width 13.1 % (11.6-14.8); White Blood Cell Count 5.8 X10^3/uL (4.5-11.0)
[2024-07-13 08:57] LABS: Albumin 4.8 g/dL (3.5-5.0); BUN Creatinine Ratio 14.8 (6-22); Blood Urea Nitrogen 19 mg/dL (9-20); Carbon Dioxide 31 mmol/L (22-32); Chloride 100 mmol/L (98-107); Estimated Glomerular Filt Rate > 60 mL/min (>60); Glucose 106 mg/dL (70-100); HEMOLYSIS < 15 (0-50); Phosphorous 3.2 mg/dL (2.5-4.5); Potassium 3.9 mmol/L (3.4-5.1); Sodium 139 mmol/L (137-145)
[2024-07-13 09:26] LABS: Prostate Specific Antigen 16.5 ng/mL (0.10-4.00)
== END ==
LOC: LAB 08:05
PROVIDERS: Family Provider Family Medicine; PCP Family Medicine; Referring Provider Student in an Organized Health Care Education/Training Program; Visit Provider Student in an Organized Health Care Education/Training Program
DX: E29.1 Testicular hypofunction (principal); E87.5 Hyperkalemia
CPT/HCPCS: 36415; 80069; 84153; 84402; 84403; 85025

== ENCOUNTER → 2025-01-06 09:44 | Outpatient (CLI) | payer MEDICARE, MEDICAID, SELFPAY ==
[2025-01-15 00:36] LABS: Percent Free Testosterone 3.42 % (1.50-4.20)
== END ==
PROVIDERS: Family Provider Family Medicine; PCP Family Medicine; Referring Provider Family Medicine; Visit Provider Student in an Organized Health Care Education/Training Program
DX: E29.1 Testicular hypofunction (principal)
CPT/HCPCS: 36415; 84402; 84403

== ENCOUNTER → 2025-01-18 15:46 | Outpatient (CLI) | payer MEDICARE, MEDICAID, SELFPAY ==
--- NOTE | 2025-01-18 15:48 | DI.CT.S_ITS ---
PROCEDURE: CT CHEST WO CON INDICATIONS: H/o multiple pulmonary nodules, eval for change TECHNIQUE: Noncontrast 5 mm thick sections acquired from the pulmonary apices to the posterior costophrenic angles. 1 mm lung window, 5 mm thick coronal and sagittal and 7 mm axial MIP reformats were then acquired. For radiation dose reduction, the following was used: automated exposure control, adjustment of mA and/or kV according to patient size. COMPARISON: None. FINDINGS: Image quality: Diagnostic. Lower Neck: No enlarged lymph nodes. Thyroid: No thyroid nodules which require sonographic follow up, per consensus guidelines. Axillae: No enlarged lymph nodes. Chest Wall: Unremarkable. Bones: Chronic right rib fracture deformities. Degenerative changes spine. Lungs and Pleura: No pneumothorax or pleural effusions. No consolidation or suspicious nodules. Similar a pickle predominant mild emphysematous changes. Stable scattered nodules measuring up to 6 millimeters in the right lower lobe (3/214). Heart: Heart size is normal. No pericardial effusion. Thoracic Vessels: The aorta and pulmonary arteries demonstrate normal size. Mediastinum and Steffi: No enlarged lymph nodes. Esophagus: No wall thickening. No hiatal hernia. Upper Abdomen: Visualized upper abdomen solid organs and bowel loops appear normal. IMPRESSION: No suspicious pulmonary nodules that meet criteria for follow-up. Dictated by: Renee Sutton M.D. on 01/18/2025 at 18:04 Approved by: Renee Sutton M.D. on 01/18/2025 at 18:10
== END ==
LOC: CT 15:47
PROVIDERS: Family Provider Family Medicine; PCP Family Medicine; Referring Provider Internal Medicine Critical Care Medicine; Visit Provider Internal Medicine Critical Care Medicine
DX: R91.8 Other nonspecific abnormal finding of lung field (principal)
CPT/HCPCS: 71250